=== PATIENT | female | born 2000 | race African-American/Black ===

== ENCOUNTER 2024-10-15 11:22 | Emergency (ER) | payer BC, SELFPAY ==
--- NOTE | 2024-10-15 11:24 | ED.URI ---
HPI - URI/Sore Throat General Chief Complaint: Upper Respiratory Infection Stated Complaint: throat pain Time Seen by Provider: 10/15/24 11:58 Source: patient, RN notes reviewed and old records reviewed Mode of arrival: ambulatory Limitations: no limitations History of Present Illness HPI Narrative: 24-year-old female presents to the [facility] with URI symptoms, sore throat, laryngitis, cough, postnasal drainage that started Friday, 4 days ago. Reports that she has had strep exposures Onset (ago): day(s) (4) Treatments prior to arrival: none Related Data Home Medications ?Medication ?Instructions ?Recorded ?Confirmed ?Last Taken ?Type No Home Medications 10/15/24 10/15/24 Unknown History Allergies Allergy/AdvReac Type Severity Reaction Status Date / Time No Known Allergies Allergy Verified 10/15/24 11:45 Review of Systems Review of Systems: All systems reviewed & are unremarkable except as noted in HPI and below Constitutional: Constitutional: Reports no additional constitutional complaints ENT: Reports as per HPI Cardiovascular: Cardiovascular: Reports no additional cardiovascular complaints, Denies chest pain and Denies dyspnea Respiratory: Respiratory: Reports no additional respiratory complaints, Denies chest congestion, Denies cough and Denies dyspnea Musculoskeletal: Musculoskeletal: Reports no additional musculoskeletal complaints Integumentary/Breasts: Skin/Breast: Reports system reviewed and no additional complaints, except as docu PMFSH Comments At the time of my signature, I reviewed and agree with the nursing past medical, surgical, social, and family history. There is no relevant family history pertinent to the patient complaint. Exam Const: General: cooperative, healthy appearing, comfortable, no acute distress, well developed, alert and well nourished Nutritional Appearance: well nourished Orientation/consciousness: patient oriented x3 Limitations: no limitations HENMT: Head: normal to inspection Ears: hearing grossly normal bilaterally, external ears normal, TM's normal bilaterally, EAC's normal, mastoids normal and no periauricular adenopathy Face/Nose/Sinus: Normal external nose present, Normal nares present and Normal nasal mucous membranes and turbinates present Mouth: Yes Normal oral and palatal mucosa present, Yes lip normal, Yes tongue normal and Yes moist mucous membranes Throat: posterior oropharynx normal, uvula midline, postnasal drainage, tonsils absent and no uvular edema Eyes: General: appearance normal, both eyes and all related structures Alignment and Position: alignment normal Neck: Neck: normal visual inspection, full ROM, no lymphadenopathy and no meningeal signs Chest: Chest palpation & inspection: normal inspection of the chest Resp: Effort & Inspection: normal respiratory effort and able to speak in complete sentences Auscultation: clear to auscultation bilaterally, no crackles, no rales, no rhonchi and no wheezes Cardio: Rate: regular rate Skin: General skin exam: normal color and no rashes or lesions noted Neuro: General: patient oriented x3, gait normal, moves all extremities and no meningeal signs Cognition (Neuro): normal cognition Speech: normal speech Gait exam (Neuro): Normal gait present Extrem: General: normal to inspection, full ROM, capillary refill normal and normal gait Psych: Appearance: grossly normal and well kempt Mental Status: mental status grossly normal Speech and movement: Normal speech and movement present and Clear speech present Affect: normal affect Attitude: cooperative Course Course Level of Care: Express Care Visit Vital Signs Vital signs: Vital Signs Temperature 97.6 F 10/15/24 11:38 Pulse Rate 73 10/15/24 11:38 Respiratory Rate 18 10/15/24 11:38 Blood Pressure 117/58 L 10/15/24 11:38 Pulse Oximetry 100 10/15/24 11:38 Oxygen Delivery Room Air 10/15/24 11:38 Temperature 97.6 F 10/15/24 11:38 Pulse Rate 73 10/15/24 11:38 Respiratory Rate 18 10/15/24 11:38 Blood Pressure 117/58 L 10/15/24 11:38 Pulse Oximetry 100 10/15/24 11:38 Oxygen Delivery Room Air 10/15/24 11:38 Reviewed MDM - URI/Sore Throat MDM Narrative Medical decision making narrative: Patient sitting in exam room. Patient presents with 4 day history of URI symptoms, sore throat, concern for strep. Strep test is negative, will culture. Patient appropriate for outpatient treatment with close follow-up Discharge instructions reviewed with patient, as well as provided in writing per nursing staff. The instructions also include specific and strict return/GO TO THE ER as well as f/u information. All questions have been answered, and the patient deny any further questions with discharge and discharge plan. Some parts of this dictation were generated by voice recognition software and may contain typographical and/or grammatical inaccuracies. Differential Diagnosis Differential diagnosis: Likely upper respiratory infection, otitis media, sinusitis, viral infection, bronchitis, influenza and pharyngitis Lab Data Labs: Lab Results 10/15/24 Range/Units 11:57 POC Grp A Strep Screen Negative (Negative) Reviewed Critical Care Time Critical Care Time Critical Care Time: No Discharge Plan Discharge Clinical Impression: Laryngitis Pharyngitis Qualifiers: Pharyngitis/tonsillitis etiology: unspecified etiology Qualified Code(s): J02.9 - Acute pharyngitis, unspecified Patient Disposition: Home Condition: Stable Instructions: Antibiotic Form, Pharyngitis (ED) Additional Instructions: Your rapid strep swab was negative today at [facility]. A throat culture will be sent to the laboratory for further testing. If the test is positive, you will receive a phone call within 48 hours and an appropriate antibiotic will be initiated at that time. Your symptoms are likely due to a viral illness, which is not treated with antibiotics. Typically viral infections last 7-10 days, can linger for couple of weeks. It is very important to treat your symptoms. Drink plenty of water, Gatorade, Pedialyte, ice pops or Jell-O. -Alternate Tylenol and Motrin per package directions for fever or pain. You can alternate every 4 hours -Antihistamine medication such as Zyrtec/Claritin/Parvin during the day can help improve symptoms. -doing daily nasal irrigations can help relieve pressure your sinuses. Things like a Neti pot -Use Flonase twice a day for 5 days then daily to help reduce the inflammation and dry up your sinuses. -You can also use Mucinex. Be sure to drink plenty of water with this medication at least 8 ounces with every dose and it is important to drink 8 to 10 glasses of water per day. Water is a natural decongestant -Eat and drink things that are easy to swallow, like tea or soup, or popsicles. -Oral rinses such as: Salt water gargles and/or may use topical anesthetic (eg. Chloraseptic spray) or lozenges to relieve dryness or throat pain). -Frequent hand washing or hand amphibian crewmember is one of the best ways to prevent spread of infection. -Using a vaporizer or humidifier at night will also help thin secretions and help with coughing up phlegm. -Follow up with primary care provider in 7-10 days if condition is not improving - For new or worsening symptoms go directly to the nearest ER Patient Language: Yoruba Prescriptions: No Action No Home Medications Follow-up/Referrals: Breanne,MACK Churchill [Primary Care Provider] - 2 Weeks ([facility] follow-up) Stand Alone Forms: Work/School Release IP Time of Disposition: 12:06
--- OUTSIDE RECORDS SUMMARY | 2024-10-15 11:34 | XMS_ITS | Data Portability ---
Author Organization REAL [facility] Smyth Address [address] [facility] [place] [address] Care Team Providers Care Operations Research Scientist Name Role Phone DOROTEO QUIROS Primary Care Provider Unavailab le Assessment No assessment recorded. Plan of Treatment Reminders Order Date Submit Date Provider Last Modified By Organization Details Last Modified Time Details Appointments ANY 15 2024 11:30A M PALOMA Guillaume Not available Not available Not available Lab lipid panel, serum 2024 025 Not available 09/03/2024 10:53:07 CBC w/ auto diff 2024 025 Not available 09/03/2024 10:53:07 CMP, serum or plasma 2024 025 Not available 09/03/2024 10:53:07 insulin, serum 2024 025 Not available 09/03/2024 10:53:07 TSH + free T4, serum 2024 025 Not available 09/03/2024 10:53:07 vitamin D, 25-hydrox y, total, serum 2024 025 Not available 09/03/2024 10:53:07 hemoglobi n A1c, QN, blood 2024 025 Not available 09/03/2024 10:53:07 Referral None recorded. Procedures None recorded. Surgeries None recorded. Imaging None recorded. Medication Orders losartan 50 mg tablet 2024 025 ANU [id number], [address], [place], [phone], 08/13/2024 11:44:14 Patient TargetsNo targets recorded. Patient Instructions Encounter Date Encounter Id Patient Instructions Last Modified By Organization Details Last Modified Time 08/13/2024 [id number] A healthy lifestyle: care instructions [email or web address] Not available 08/23/2024 00:50:14 Reason for Referral None Reported. Results Created Date Observation Date Name Description Value Unit Range Abnormal Flag Note LastModifiedBy Organization Detail LastModifiedTime Result Notes None recorded. Problems Name Problem SNOMED Code Status Onset Date Resolution Date Notes Provider Name and Address Organization Details Recorded Time Benign essential hypertensio n 5402734 Active 2024 PALOMA Guillaume Attn: Accountin g,[address] [facility] [address], [place], [address], [facility] - [facility] 5 00:49:19 Body mass index 40+ - severely obese 084470982 Active 2024 PALOMA Guillaume Attn: Accountin g,[address] [facility], [place], [address], [place] - [facility] 00:49:29 Positive screening for depression on PHQ-9 (Patient Health Questionnai re 9) [id number] 00 Active 2024 PALOMA Guillaume Attn: Accountin g,[address] [facility], [place], [address], [place] - [facility] 5 00:49:56 Vitamin D deficiency 22914456 Active 2024 PALOMA Guillaume Attn: Accountin g,[address] [facility], [place], [address], [place] [facility] 5 00:49:58 Obesity 042997406 Active 2024 PALOMA Guillaume Attn: Accountin g,[address] [facility], [place], [address], [place] [facility] 5 00:50:04 Problem Notes None recorded. Procedures Surgical History Date Name Laterality Status Provider Name and Address Organization Details Recorded Time Tonsillectomy completed Edie Chan MA [place] - [facility] 08/13/2024 14:07:07 Imaging Results None recorded. Procedure Notes None recorded. Medical Equipment None Reported. Allergies No known drug allergies Medications Name Sig Start Date Stop Date Status Note LastModified by Organization Details LastModified Time losartan 50 mg tablet TAKE 1 TABLET BY MOUTH EVERY DAY IN THE MORNING 2024 active Not Available Not Available Not Avai lable amoxicillin 875 mg tablet TAKE 1 TABLET BY MOUTH EVERY 12 HOURS FOR 10 DAYS 08/13 completed Not Available Not Available Not Available ergocalcife rol (vitamin D2) 1,250 mcg (50,000 unit) capsule TAKE 1 CAPSULE BY MOUTH EVERY WEEK active Not Available Not Available No t Available methylpredn isolone 4 mg tablets in a dose pack FOLLOW PACKAGE DIRECTION S 08/13 completed Not Available Not Available Not Available cefdinir 300 mg capsule TAKE 1 CAPSULE BY MOUTH EVERY 12 HOURS FOR 10 DAYS 08/13 completed Not Available Not Available Not Available Nexplanon 68 mg subdermal implant active Not Available Not Available Not Available Wegovy 2.4 mg/0.75 mL subcutaneou s pen injector ADMINISTE R 2.4 MG UNDER THE SKIN EVERY WEEK 08/13 completed Not Available Not Available Not Available Wegovy 1.7 mg/0.75 mL subcutaneou s pen injector INJECT 1.7 MG UNDER THE SKIN EVERY WEEK DIRECTED 08/13 completed Not Available Not Available Not Available Wegovy 1 mg/0.5 mL subcutaneou s pen injector ADMINISTE R 1 MG UNDER THE SKIN EVERY WEEK 08/13 completed Not Available Not Available Not Available Wegovy 0.5 mg/0.5 mL subcutaneou s pen injector 08/13 completed Not Available Not Available Not Available Vitals Date Recorded Respiratory rate Systolic blood pressure Diastolic blood pressure Systolic blood pressure Diastolic blood pressure Provider Name and Address Organization Details Last Updated DateTime 18 /min 150 mm[Hg] 90 mm[Hg] 150 mm[Hg] 90 mm[Hg] PALOMA Guillaume Attn: Karsten g [facility], [place], [address], [place] - [facility] 11:44:00 Date Recorded Body weight Body mass index (BMI) Body height Oxygen saturation Oxygen saturation in Arterial blood by Pulse oximetry Heart rate Systolic blood pressure Diastolic blood pressure Provider Name and Address Organization Details Last Updated DateTime 351214. 41 g 58.4 kg/m2 162.56 cm 99 % 99 % 71 /min 118 mm[Hg] 82 mm[Hg] Edie Chan MA [facility] 11:25:47 Social History Question Answer Notes LastModified by Organizat ion Details LastModified Time Tobacco Smoking Status Never Smoker Edie Chan MA null, [facility] 08/13/2024 14:09:34 Do You Have An Advance Directive? No Information n ot available 08/13/2024 Are You Blind Or Do You Have Difficulty Seeing? No Information n ot available 08/13/2024 What Is Your Level Of Caffeine Consumption? Occasional Information not available 08/13/2024 In The 14 Days Before Symptom Onset, Have You Had Close Contact With A Laboratory-confirm ed COVID-19 While That Case Was Ill? No Information n ot available 10/23/2023 In The 14 Days Before Symptom Onset, Have You Had Close Contact With A Person Who Is Under Investigation For COVID-19 While That Person Was Ill? No Information not available 10/23/2023 Have You Been To An Area Known To Be High Risk For COVID-19? No Information not available 10/23/2023 Are You Deaf Or Do You Have Serious Difficulty Hearing? No Information not available 08/13/2024 What Type Of Diet Are You Following? REGULAR Information n ot available 08/13/2024 Are There Any Guns Present In Your Home? No Information not available 08/13/2024 What Was The Date Of Your Most Recent Tobacco Screening? 08/13/2024 Information not available 08/13/2024 Do You Use Your Seat Belt Or Car Seat Routinely? Yes Information not available 10/23/2023 Do You Have Smoke And Carbon Monoxide Detectors In Your Home? Yes Information not available 10/23/2023 Do You Use Sunscreen Routinely? No Information not available 08/13/2024 Has Tobacco Cessation Counseling Been Provided? Yes Information not available 10/23/2023 On What Date Was Tobacco Cessation Counseling Provided? 08/13/2024 Information not available 08/13/2024 How Many Years Have You Used E-cigarettes Or Vape? 5 Information not available 08/13/2024 Sex: Female Functional Status Question Answer Note LastModified by [employer] Details LastModified Time Do you use any illicit or recreational drugs? No Information not available 08/13/2024 Do you or have you ever used any other forms of tobacco or nicotine? Yes Information not available 08/13/2024 What is your level of alcohol consumption? Occasional Information not available 08/13/2024 Do you or have you ever used smokeless tobacco? Never used smokeless tobacco Information not available 08/13/2024 Are you currently employed? Yes Information not available 08/13/2024 Are you able to care for yourself? Yes Information not available 10/23/2023 Do you or have you ever used e-cigarettes or vape? Current user of electronic cigarettes Information not available 08/13/2024 What is your exercise level? None Information not available 08/13/2024 Mental Status None recorded. Family History Relationship Description Onset Age of this Age Resolved Age Notes LastModified by Organization Details LastModified Time Maternal Grandmother Asthma [email or web address] Not available 07/18 14:07:27 Maternal Grandmother Depressive disorder tcarterma Not available 2024 14:08:09 Maternal Grandmother Diabetes mellitus tcarterma Not available 2024 14:08:02 Brother Asthma tcarterma Not available 08/13/2024 14:07:27 Brother Depressive disorder tcarterma Not available 2024 14:07:45 Daughter Attention deficit hyperactivit y disorder tcarterma Not available 08/13 14:07:32 Medical History Condition Response Coronary Artery Disease N Other N High Blood Pressure N Atrial Fibrillation N Kidney or Bladder Problems N Thyroid Problems N GI Problems N Depression N COPD N Blood Clots N Have you had a mammogram in the last yea r? N Skin Problems N Anemia N Heart Attack (RI) N Anxiety Disorder N Diabetes N Muscle, Joint, or Bone Problems N Seizures/Epilepsy N Have you had a colonoscopy in the last 1 0 years? N Acid Reflux (GERD) N Cancer N Stroke N Asthma N Allergies N Have you had a PSA blood test in the las t year? N High Cholesterol N Hepatitis N Liver Disease N Headaches N Heart Failure N Osteoporosis N Gynecological History Statement/Question Response Menses Monthly Y Duration of Flow (days) 7 Flow Heavy Date of LMP 08/05/2024 LMP Approximate Obstetrics History GPAL:G 0 P 0 0 0 0 Immunizations Vaccine Type Date Status Note Provider Nam e and Address Organization Details Recorded Time Hib, unspecified formulation 3 completed Edie [place], [place] [facility] 08/13/2024 11:19:37 Hib, unspecified formulation 3 completed Ed[place] [facility] 08/13/2024 11:19:37 Hib, unspecified formulation 2 completed Ed[place] [facility] 08/13/2024 11:19:37 IPV 3 completed Ed[place] [facility] 08/13/2024 11:19:37 IPV 6 completed Ed[place] [facility] 08/13/2024 11:19:37 IPV 3 completed Ed[place] [facility] 08/13/2024 11:19:37 IPV 2 completed Ed[place] [facility] 08/13/2024 11:19:37 MMR 6 completed Ed[place] [facility] 08/13/2024 11:19:37 MMR 3 modesto Chan [place] [facility] 08/13/2024 11:19:37 COVID-19, mRNA, LNP-S, PF, 30 mcg/0.3 mL dose 1 completed Ed[place] [facility] 08/13/2024 11:19:37 COVID-19, mRNA, LNP-S, PF, 30 mcg/0.3 mL dose 1 completed [place] [facility] 08/13/2024 11:19:37 COVID-19, mRNA, LNP-S, PF, 30 mcg/0.3 mL dose 1 completed [place] [facility] 08/13/2024 11:19:37 pneumococcal conjugate PCV 7 3 completed Ed[place] [facility] 08/13/2024 11:19:37 pneumococcal conjugate PCV 7 3 completed Ed[place] [facility] 08/13/2024 11:19:37 pneumococcal conjugate PCV 7 3 completed Ed[place] [facility] 08/13/2024 11:19:37 pneumococcal conjugate PCV 7 2 completed [place] [facility] 08/13/2024 11:19:37 influenza, unspecified formulation 3 completed [place] [facility] 08/13/2024 11:19:37 influenza, unspecified formulation 3 completed [place] [facility] 08/13/2024 11:19:37 influenza, unspecified formulation 5 completed [place] [facility] 08/13/2024 11:19:37 Tdap 3 completed [place] [facility] 08/13/2024 11:19:37 varicella 7 completed [place] [facility] 08/13/2024 11:19:37 varicella 3 completed [place] [facility] 08/13/2024 11:19:37 Influenza, split virus, trivalent, PF 3 completed [place] [facility] 08/13/2024 11:19:37 Influenza, split virus, trivalent, PF 2 completed [place] [facility] 08/13/2024 11:19:37 HPV, quadrivalent 4 completed [place] [facility] 08/13/2024 11:19:37 HPV, quadrivalent 3 completed [place] [facility] 08/13/2024 11:19:37 Hep B, adolescent or pediatric 3 completed [place] [facility] 08/13/2024 11:19:37 Hep B, adolescent or pediatric 2 completed [place] [facility] 08/13/2024 11:19:37 Hep B, adolescent or pediatric 2 completed [place] [facility] 08/13/2024 11:19:37 Hep A, pediatric, unspecified formulation 7 completed [place] [facility] 08/13/2024 11:19:37 Hep A, pediatric, unspecified formulation 6 completed [place] [facility] 08/13/2024 11:19:37 Hib (PRP-T) 3 completed [place] [facility] 08/13/2024 11:19:37 Meningococcal MCV4O 3 completed [place] [facility] 08/13/2024 11:19:37 meningococcal MCV4P 8 completed [place] [facility] 08/13/2024 11:19:37 DTaP 3 completed [place] [facility] 08/13/2024 11:19:37 DTaP 6 completed Ramiroselma Chan [place] [facility] 08/13/2024 11:19:37 DTaP 3 completed Ramirosilaslaura Dustin [place] [facility] 08/13/2024 11:19:37 DTaP 2 completed Ed[place] [facility] 08/13/2024 11:19:37 DTaP, 5 pertussis antigens 3 completed Edie [place] [facility] 08/13/2024 11:19:37 Influenza, split virus, quadrivalent, PF 0 completed Ramirosilaslaura Dustin [place] [facility] 08/13/2024 11:19:37 Influenza, split virus, quadrivalent, PF 6 completed Edie [place] [facility] 08/13/2024 11:19:37 Influenza, split virus, quadrivalent, PF 7 completed Jesuslaura Dustin [place] [facility] 08/13/2024 11:19:37 Influenza, split virus, quadrivalent, PF 0 completed Ramirosilaslaura Dustin [place] [facility] 08/13/2024 11:19:37 Past Encounters Encounter ID Performer Location Encounter Start Date Encounter Closed Date Diagnosis/Indication Diagnosis SNOMED-CT Code Diagnosis ICD10 Code Diagnosis Note [id number] Joselito Wilkins MD [facility] [place] [address] [place] [address] 08/13/2024 11:11:30 08/13/2024 14:45:55 Adult health examination 831929956 Z00.00 Annual wellness exam completed with fasting labs ordered Benign ess ential hypertension 6040028 I10 Blood pressure is 150/90 on exam today. In order to control blood pressure to goal range the patient will start low dose losartan 50mg daily Body mass index 40+ - severely obese 547656223 Z68.43 BMI 58.4. Check fasting insulin and thyroid labs Cholesterol screening 27 6980967 Z13.220 Fasting cholestero l panel ordered Diabetes nohelia perez screening 610603957 Z13.1 A1c ordered for diabetes risk assessment Vitamin D deficiency 347 18979 E55.9 History of vitamin-D deficiency with updated lab ordered Positive s creening for depression on PHQ-9 (Patient Health Questionnaire 9) 3262471833 11063 Z13.31 Patient scored an 11 on screening today. She has no complaints or concerns overall with her mental health. Obesity 292558673 E66.9 discussed healthy diet, exercise, controllin g carbohydra pantera and added sugars in the diet Health Concerns Section Related Observation LastModified by Organization Detai ls LastModified Time None Recorded Concern Status LastModified by Organization Details LastModified Time None Recorded Advance Directives Directive N: Payers Encounter Date Sequence Insurance Name Policy Number Policy Moran Covered Member ID Moran Member ID Guarantor Name 08/13/2024 1 [place] [id number] Yola Varma [id number] Keisha Varma Notes Date Note Type Note Provider Name and Address Organization Details Recorded Time 08/13/2024 text/html Patient is here to reestablish with a provider at new office location. She takes vitamin-D supplement and has a history of a Nexplanon implant. PALOMA Guillaume Attn: Accounting[address] [place], [address], [facility] - [facility] 08/23/2024 00:50:57 OBGyn Episode No OBEpisode recorded.
--- OUTSIDE RECORDS SUMMARY | 2024-10-15 11:34 | XMS_ITS | Data Portability ---
Author Organization [place] [facility], Main Office Address [address] [place] [address] Care Team Providers Care Mental Health Professional Name Role Phone DOROTEO QUIROS Primary Care Provider Assessment No assessment recorded. Plan of Treatment Reminders Order Date Submit Date Provider Last Modified By Organization Details Last Modified Time Details Appointments Surgery 2024 09:30A Drake Salazar MD Not available Not available Not available Post-Op 15 2024 01:15P Drake Salazar MD Not available Not available Not available Lab None recorded. Referral None recorded. Procedures None recorded. Surgeries endoscopy , nasal/sin us, w/ maxillary antrostom y & tissue removal (SURG) 2024 025 Not available 09/16/2024 18:04:28 endoscopy , nasal/sin us, with frontal sinus explorati on (SURG) 2024 025 Not available 09/16/2024 18:04:28 Imaging None recorded. Medication Orders cefdinir 300 mg capsule 2024 025 [email or web address] [id number], [address], [place], [phone], 09/02/2024 14:28:45 Medrol (Josef) 4 mg tablets in a dose pack 2024 025 [email or web address] [facility] #[id number], [address], [place], [phone], 09/02/2024 14:28:47 Patient TargetsNo targets recorded. Patient Instructions Encounter Date Encounter Id Patient Instructions Last Modified By Organization Details Last Modified Time 07/12/2024 [id number] prescribed cefdinir and Medrol Dosepak for antimicrobial coverage and inflammation. She will have a sinus CT completed. Discussed nasal turbinate hypertrophy and advised to use her Flonase daily instead of intermittently. We will await the final results of her sinus CT before having her discuss surgical options if needed with Dr. Salazar. [email or web address] Not available 07/12/2024 17:02:17 Reason for Referral None Reported. Results Created Date Observation Date Name Description Value Unit Range Abnormal Flag Note LastModifiedBy Organization Detail LastModifiedTime 12/28/1912/27/2020 US, guru cho r No observ ation record ed. [id number] Not Available 07/17/2022 22:45:38 05/29/19 22 05/28/2021 XR, cervi nathalia spine , 2 or 3 view No observ ation record ed. [id number] [facility] [address], [place], [address], 07/17/2022 22:45:38 01/07/20 23 06/26/2022 US, abdom en No observ ation record ed. [email or web address] Not Available 2022 18:14:35 06/12/19 24 06/26/2022 US, abdom en No observ ation record ed. [email or web address] Not Available 06/12 14:02:33 08/11/19 25 08/09/2024 CT, sinus es, w/o contr ast No observ ation record ed. [email or web address] [facility] ([facility] Sched[facility]) [address] [place], [address], 08/25/2024 11:55:01 08/24/19 25 08/23/2024 CT, sinus es, w/o contr ast No observ ation record ed. BARCODE [facility]) [address] [place], [address], 08/23/2024 13:31:39 Result Notes None recorded. Problems Name Problem SNOMED Code Status Onset Date Resolution Date Notes Provider Name and Address Organization Details Recorded Time Mixed anxiety and depressive disorder 073585169 Active 2022 Not Available [facility] 3 22:43:49 Abdominal mass 784017897 Active 2022 Not Available [facility] 3 22:43:49 Vitamin D deficiency 54546888 Active 2022 PALOMA Guillaume [address], [place], [address] , [employer] [facility] [employer] [facility] 3 14:09:46 Intentiona l weight loss 234484978 Active 2022 PALOMA Guillaume [address], [address], [place], [address] , [employer] [facility] [employer] [facility] 3 16:22:14 Chronic sinusitis 59589231 Active 2024 Vida Doyle RN [facility], [employer] [facility] [employer] [facility] 5 16:42:12 Hypertroph y of nasal turbinates 70601746 Active 2024 ISIDRA Navarro [address], [address], [place], [address] , [employer] [facility] [employer] [facility] 5 16:58:47 Chronic frontal sinusitis 04318946 Active 2024 Khadar Salazar MD [address], [place], [address] , [employer] [facility] [employer] [facility] 5 14:40:12 Chronic bilateral maxillary sinusitis 9478987065840 9105 Active 2024 Khadar Salazar MD [address], [address], [place], [address] , [employer] [facility] [employer] [facility] 5 14:40:33 Problem Notes None recorded. Procedures Surgical History Date Name Laterality Status Provider Name and Address Organization Details Recorded Time other completed Not Available [facility] 05/2022 22:42:42 Tonsillectomy completed Not Available [facility] 07/17/2022 22:42:42 Imaging Results None recorded. Procedure Notes None recorded. Medical Equipment None Reported. Allergies No known drug allergies Medications Name Sig Start Date Stop Date Status Note LastModified by Organization Details LastModified Time losartan 50 mg tablet TAKE 1 TABLET BY MOUTH EVERY DAY IN THE MORNING active Not Available Not Available No t Available cyclobenz aprine 10 mg tablet TAKE 1 TABLET BY MOUTH THREE TIMES DAILY NEEDED FOR MUSCLE SPASM 07/12 completed Not Available Not Available Not Available Tubersol 5 tub. unit/0.1 mL intraderm al injection solution Inject 1 unit by intrader mal route. 09/01 completed Internal note: Test was negatvie External note: Patient handled injectio n well. Is coming back on 08/10/19 21 to have test read Not Available Not Available Not Available amoxicill in 875 mg tablet TAKE 1 TABLET BY MOUTH EVERY 12 HOURS FOR 10 DAYS 07/12 completed Not Available Not Available Not Available sertralin e 25 mg tablet TAKE 1 TABLET BY MOUTH EVERY DAY IN THE EVENING 06/10 completed Not Available Not Available Not Available estradiol 2 mg tablet 07/12 completed Not Available Not Available Not Available ergocalci ferol (vitamin D2) 1,250 mcg (50,000 unit) capsule TAKE 1 CAPSULE BY MOUTH EVERY WEEK 07/12 completed Not Available Not Available Not Available methylpre dnisolone 4 mg tablets in a dose pack FOLLOW PACKAGE DIRECTIO NS 09/02 completed Not Available Not Available Not Available cefdinir 300 mg capsule TAKE 1 CAPSULE BY MOUTH EVERY 12 HOURS FOR 10 DAYS 09/02 completed Not Available Not Available Not Available metformin ER 750 mg tablet,ex tended release 24 hr TAKE 1 TABLET BY MOUTH EVERY DAY AT DINNER 06/10 completed Not Available Not Available Not Available Lo Loestrin Fe 1 mg-10 mcg (24)/10 mcg (2) tablet TK 1 T PO QD 08/07 completed Not Available Not Available Not Available Nexplanon 68 mg subdermal implant active Not Available Not Available Not Available Wegovy 2.4 mg/0.75 mL subcutane ous pen injector ADMINIST ER 2.4 MG UNDER THE SKIN EVERY WEEK NEEDED 06/11 completed Not Available Not Available Not Available Wegovy 1.7 mg/0.75 mL subcutane ous pen injector INJECT 1.7 MG UNDER THE SKIN EVERY WEEK DIRECTED 06/11 completed Not Available Not Available Not Available Wegovy 1 mg/0.5 mL subcutane ous pen injector ADMINIST ER 1 MG UNDER THE SKIN EVERY WEEK 06/11 completed Not Available Not Available Not Available Wegovy 0.25 mg/0.5 mL subcutane ous pen injector ADMINIST ER 0.25MG UNDER THE SKIN EVERY WEEK DIRECTED 07/12 completed Not Available Not Available Not Available Wegovy 0.5 mg/0.5 mL subcutane ous pen injector Inject 0.5 mg every week by subcutan eous route as directed . 08/15 completed Not Available Not Available Not Available Vitals Date Recorded Body mass index (BMI) Body height Oxygen saturation Oxygen saturation in Arterial blood by Pulse oximetry Heart rate Respiratory rate Body temperature Body weight Systolic blood pressure Diastolic blood pressure Provider Name and Address Organization Details Last Updated DateTime 3 62.8 kg/m2 162.56 cm 99 % 99 % 100 /min 16 /min 98.2 [degF] 765747. 81 g 128 mm[Hg] 80 mm[Hg] Not Available [facility] 3 22:43:37 Date Recorded Body weight Body mass index (BMI) Body height Body temperature Provider Name and Address Organization Details Last Updated DateTime 07/12/2024 387462.59 g 58.7 kg/m2 162.56 cm 97.9 [degF] Vida Doyle RN [facility] [employer] [facility] 07/12/2024 16:21:32 Date Recorded Body height Body mass index (BMI) Body weight Body temperature Provider Name and Address Organization Details Last Updated DateTime 09/02/2024 162.56 cm 59 kg/m2 816894.78 g 97.8 [degF] Vida Doyle RN [facility] [employer] [facility] 09/02/2024 14:30:24 Date Recorded Body mass index (BMI) Body height Oxygen saturation Oxygen saturation in Arterial blood by Pulse oximetry Heart rate Body temperature Body weight Systolic blood pressure Diastolic blood pressure Provider Name and Address Organization Details Last Updated DateTime 1 57.2 kg/m2 162.56 cm 98 % 98 % 88 /min 98.6 [degF] 778889. 7 g 120 mm[Hg] 80 mm[Hg] Not Available [facility] 22:43:37 Date Recorded Body mass index (BMI) Body weight Provider Name and Address Organization Details Last Updated DateTime 01/06/2023 51.2 kg/m2 301980.53 g PALOMA Guillaume [address] [facility], [facility] [address], [place], [address], [employer] 01/06/2023 13:03:09 Date Recorded Body height Body temperature Heart rate Oxygen saturation Oxygen saturation in Arterial blood by Pulse oximetry Systolic blood pressure Diastolic blood pressure Provider Name and Address Organization Details Last Updated DateTime 3 162.56 cm 97.9 [degF] 78 /min 97 % 97 % 122 mm[Hg] 78 mm[Hg] Vee Camejo RN [employer] [facility] 12:45:55 Social History Question Answer Notes LastModified by Organizat ion Details LastModified Time Tobacco Smoking Status Never Smoker VAPES Vida Doyle RN [facility], [employer] 07/12/2024 16:20:39 What Is Your Level Of Caffeine Consumption? Occasional [id number] Information not available 07/17/2022 How Much Tobacco Do You Chew? None [id number] Information not available 07/17/2022 In The 14 Days Before Symptom Onset, Have You Had Close Contact With A Laboratory-confirm ed COVID-19 While That Case Was Ill? No [id number].[id number] Information not available 07/17/2022 In The 14 Days Before Symptom Onset, Have You Had Close Contact With A Person Who Is Under Investigation For COVID-19 While That Person Was Ill? No [id number].[id number] Information not available 07/17/2022 What Type Of Diet Are You Following? REGULAR MIGRATION.[id number] 1844 Information not available 07/17/2022 Which Illicit Or Recreational Drugs Have You Used? None MIGRATION.[id number] 6257 Information not available 07/17/2022 Have There Been Any Changes To Your Family Or Social Situation? No MIGRATION.[id number] 3975 Information not available 07/17/2022 Do You Use Insect Repellent Routinely? No MIGRATION.662018 5694 Information not available 07/17/2022 What Is Your Relationship Status? Single MIGRATION.255226 1005 Information not available 07/17/2022 Do You Use Your Seat Belt Or Car Seat Routinely? Yes [email or web address] Information not available 01/03/2023 Do You Have Smoke And Carbon Monoxide Detectors In Your Home? Yes MIGRATION.773320 3463 Information not available 07/17/2022 How Much Tobacco Do You Smoke? No MIGRATION.619761 0492 Information not available 07/17/2022 Do You Use Sunscreen Routinely? No MIGRATION.112322 4508 Information not available 07/17/2022 Have You Recently Traveled Abroad? No MIGRATION.616675 9660 Information not available 07/17/2022 Do You Have Any Dietary Restrictions? No MIGRATION.258111 0025 Information not available 07/17/2022 Sex: Unknown Functional Status Question Answer Note LastModified by Organizat ion Details LastModified Time Do you use any illicit or recreational drugs? No MIGRATION.151860 [id number] Information not available 07/17/2022 Do you or have you ever used any other forms of tobacco or nicotine? No MIGRATION.357571 5235 Information not available 07/17/2022 What is your level of alcohol consumption? Occasional MIGRATION.637715 3658 Information not available 07/17/2022 Do you or have you ever used smokeless tobacco? Never used smokeless tobacco MIGRATION.977430 3169 Information not available 07/17/2022 Are you currently employed? 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 Never used electronic cigarettes MIGRATION.234613 6313 Information not available 07/17/2022 What is your exercise level? Moderate MIGRATION.757090 0450 Information not available 07/17/2022 Mental Status None recorded. Family History Relationship Description Onset Age of this Age Resolved Age Notes LastModified by Organization Details LastModified Time Unspecified Relation Heart failure [id number] Not available 07/17/2022 22:42:44 Unspecified Relation Family history of malignant neoplasm MIGRATION.468 [id number] Not available 07/17/2022 22:42:44 Unspecified Relation Hypertensive disorder MIGRATION.050 [id number] Not available 07/17/2022 22:42:44 Unspecified Relation Diabetes mellitus MIGRATION.079 [id number] Not available 07/17/2022 22:42:44 Unspecified Relation Hyperlipidem ia MIGRATION.481 [id number] Not available 07/17/2022 22:42:44 Maternal Grandmother Kidney disease MIGRATION.615 [id number] Not available 07/17/2022 22:42:44 Notes:BROTHER: SHERIE Zeng HEARING LOSS Medical History Condition Response NERVE DISEASE N BLINDNESS N RHEUMATIC FEVER N KIDNEY STONES N BLADDER PROBLEMS N MRSA N OTHER # 1 N POLIO N LUNG DISEASE/DISORDER N RADIATION / CHEMOTHERAPY N COPD N Other # 2 N BLOOD DISEASES N SURGERY N EAR OR HEARING PROBLEMS N MUMPS N BOWEL PROBLEMS N DEPRESSION (INCLUDING POST ) Y STROKE/TIA N ULCERS N BENIGN PROSTATIC HYPERPLASIA N MEASLES N MYOCARDIAL INFARCTION N OBESITY N GERD/NAUSEA N ANEURYSM N URINARY/BLADDER/KIDNEY PROBLEMS N CORONARY ARTERY DISEASE (CAD) N ADDICTION CONCERNS N ENDOMETRIOSIS N Impotence N USE OF BLOOD THINNERS N SKIN PROBLEMS N GASTROINTESTINAL DISORDER N PERIPHERAL VASCULAR DISEASE N MUSCLE,JOINT OR BONE PROBLEMS N GASTROINTESTINAL BLEEDING N BLOOD CLOTS N ASTHMA N CATARACTS N ERECTILE DYSFUNCTION N VARICOSITIES N GI PROBLEMS N Low Testosterone N INFERTILITY N AIDS/HIV N CHEMOTHERAPY / RADIATION N LIVER DISEASE N MALE HYPOGONADISM N HYPERTENSION N Deficiency N ANXIETY DISORDER Y BLOOD TRANSFUSION N ANEMIA/BLOOD DISORDER N CHRONIC EAR INFECTIONS N BRONCHITIS N TUBERCULOSIS N GLAUCOMA N FOOT PROBLEM N DIVERTICULITIS N SLEEP APNEA N CHICKENPOX N INFECTIOUS DISEASE N HEART ARRHYTHMIA N PROSTATE N INSOMNIA N HIGH CHOLESTEROL / HYPERLIPIDEMIA N HYPERTHYROIDISM N EYE PROBLEMS N NEUROLOGICAL PROBLEMS N EDEMA N CHRONIC PAIN SYNDROME N HYPOTHYROIDISM N CAROTID BLOCKAGE N CONSTIPATION N BACK / NECK PROBLEMS N HAVE YOU BEEN HOSPITALIZED OR SEEN IN [facility] IN THE PAST YEAR ? N ATHEROSCLEROSIS N BREAST PROBLEMS N DIALYSIS N ECZEMA N OSTEOPOROSIS N ARTHRITIS N NO SIGNIFICANT PAST MEDICAL HISTORY N APPENDICITIS N DIABETES, TYPE N BAD TEETH N ENT N HEARTBURN / REFLUX N AUTISM SPECTRUM DISORDER (ASD) N HEPATITIS / LIVER DISEASE N GOUT N SLEEP DISORDER N ALZHEIMER'S DISEASE N Brain Problems N HERPES N DEMENTIA N HEADACHES/MIGRAINES N SEIZURES/EPILEPSY N VASCULAR DISEASE N PACEMAKER N Blood Disorder N DIZZINESS N HEART DISEASE/HEART PROBLEMS N KIDNEY DISEASE N MULTIPLE SCLEROSIS N CARDIAC ARRHYTHMIA N CANCER: SPECIFY N ATRIAL FIBRILLATION N Gall Stones N PULMONARY EMBOLISM N AUTOIMMUNE DISEASE N Gynecological HistoryNo gynecological history recorded. Obstetrics History GPAL:G 0 P 0 0 0 0 Immunizations Vaccine Type Date Status Note Provider Nam e and Address Organization Details Recorded Time TST-PPD intradermal completed Not Available [facility] 07/17/2022 22:45:27 Past Encounters Encounter ID Performer Location Encounter Start Date Encounter Closed Date Diagnosis/Indication Diagnosis SNOMED-CT Code Diagnosis ICD10 Code Diagnosis Note [id number] PALOMA Guillaume [facility] [place] [address] [place] [address] 08/07/2020 00:00:00 08/08/2020 21:47:09 [id number] PALOMA Guillaume [facility] [place] [address] [place] [address] 12/06/2020 00:00:00 12/06/2020 09:11:18 [id number] PALOMA Guillaume [facility] [place] [address] [place] [address] 06/10/2022 00:00:00 06/18/2022 17:46:52 [id number] PALOMA Guillaume [facility] [place] [address] [place] [address] 01/06/2023 12:41:13 01/06/2023 13:01:02 Mixed anxiety and depressive disorder 804189793 F41.8 stable off medication , no c/o. Vitamin D deficiency 347 34280 E55.9 continue high dose weekly Rx vit D Body mass index 40+ - severely obese 858917888 Z68.43 68 pounds lost since end may starting wegovy. Now on 2.4mg weekly dosing. Still feeling good results. Intentiona l weight loss 405084036 R63.8 as above. Long-term drug therapy 593910896 Z79.014 [id number] Khadar Salazar MD [facility] [place] [address] [place] [address] 07/12/2024 15:53:19 07/12/2024 17:02:47 Hypertrophy of nasal turbinates 41334889 J34.3 Advised to use flonase daily instead of intermitte ntly for symptom management Chronic sinusitis 820162 00 J32.9 [id number] Khadar Salazar MD [facility] [place] [address] [place] [address] 09/02/2024 14:25:50 09/03/2024 09:14:11 Chronic frontal sinusitis 32705538 J32.1 Chronic bi lateral maxillary sinusitis 9074448095 9085480 J32.0 Health Concerns Section Related Observation LastModified by Organization Detai ls LastModified Time None Recorded Concern Status LastModified by Organization Details LastModified Time None Recorded Advance Directives Directive None Recorded Payers Encounter Date Sequence Insurance Name Policy Number Policy Moran Covered Member ID Moran Member ID Guarantor Name 01/06/2023 1 [employer] (POS II) [id number] Yola Velasquezs [id number] Keisha Scaggs 07/12/2024 1 [place] Yola Scaggs [id number] Keisha Scaggs 09/02/2024 1 [place] Yola Scaggs [id number] Keisha Scaggs Notes Date Note Type Note Provider Name and Address Organization Details Recorded Time 12/06/2020 text/html Abdominal PainReported bypatient.Location: [facility] Quality:pain;bloati ng;cramping;dull Severity:moderate Duration:intermitte nt Onset/Timing:wax/wa ne Context:IBS; food Aggravating Factors:eating Alleviating Factors:nothing gives relief Associated Symptoms:no fever; no chills; no blood in the urine; no heartburn; no shortness of breath; no nausea; no vomiting; no constipation; normal stool; no blood in stool; normal appetite;diarrhea Other:denies possible Pain Radiation:no radiation Previous Tests, Treatment and/or Diagnostic Procedures:noneAnxi ety/DepressionRepor yee bypatient.Severity: denies suicidal ideations; able to maintain relationships; does not interfere with activities of daily living Context:no major life stressors Associated Symptoms:denies homicidal ideations; no significant weight gain; no significant weight loss; no visual/auditory hallucinations; no delusions; no shortness of breath; mood good; no anxiety; no crying spells; no panic; no isolation; sleeping well; appetite good; energy good; no apathy; maintaining functionality Not Available [facility] 12/06/2020 09:11:18 06/10/2022 text/html Anxiety/Depressi onR eported bypatient.Quality:s ymptoms worse in the evening Severity:denies suicidal ideations; able to maintain relationships;inter ference with household activities Duration:symptoms lasting over 2 weeks Onset/Timing:still present Context:trouble at work; school Modifying Factors:stopped med Associated Symptoms:denies homicidal ideations; no significant weight gain; no significant weight loss; no visual/auditory hallucinations; no delusions; no shortness of breath; mood good; no anxiety; no crying spells; no panic; no isolation; sleeping well; appetite good; energy good; no apathy; maintaining functionality Not Available [place] [facility] 06/18/2022 17:46:52 01/06/2023 text/html Anxiety/Depressi onR eported bypatient.Severity: denies suicidal ideations; able to maintain relationships; does not interfere with activities of daily living Context:no major life stressors Associated Symptoms:denies homicidal ideations; no significant weight gain; no significant weight loss; no visual/auditory hallucinations; no delusions; no shortness of breath 6 mo f/u PALOMA Guillaume [address] [place] [address], [address], [facility] [employer] [facility] 01/16/2023 16:22:44 07/12/2024 text/html This patient has a past medical history significant for vitamin-D deficiency, anxiety, and depression. She presents to the office with a complaint of nasal congestion, inability to breathe through her nose, and a possible nasal polyp. She notes that she has difficulty breathing through her nose since she was approximately 9 years old. She notes a history with sinus infections annually with several rounds of antibiotics and steroid use. Her most recent 1 was on 05/13/2024 in which she was prescribed amoxicillin. She does report use of saline nasal spray and antihistamine with little symptom relief. She does report use of Flonase but admits that she only uses the Flonase when she is acutely ill and not on a regular basis. ISIDRA Navarro [address] [facility], [facility] [address], [place], [address], [employer] 07/12/2024 17:02:20 09/02/2024 text/html This patient had a sinus CT which reveals left frontal and bilateral maxillary sinusitis. She has had numerous courses of antibiotics this has been going on for years. Khadar Salazar MD [address] [facility], [facility] [address], [place], [address], [employer] 09/02/2024 14:40:58 OBGyn Episode No OBEpisode recorded.
--- OUTSIDE RECORDS SUMMARY | 2024-10-15 11:34 | XMS_ITS | Clinical Summary ---
Author Organization [employer] [facility] Address [address] [place] [address] Care Team Providers Care Sports Commentator Name Role Phone Unavailable Primary Care Provider Unavailabl e Medications semaglutide, weight loss, (Wegovy) 0.5 mg/0.5 mL Pen Injector Inject 0.5 mL (0.5 mg) by subcutaneous injection every 7 days. 2 mL 2 08/15/2023 3:47 PM CDT 4 Active semaglutide, weight loss, (Wegovy) 0.5 mg/0.5 mL Pen Injector Inject 0.5 mL (0.5 mg) by subcutaneous injection every 7 days. 2 mL 2 10/14/2023 7:00 PM CDT 4 Active semaglutide, weight loss, (Wegovy) 1 mg/0.5 mL Pen Injector Inject 1 mg (0.5 mL) subcutaneously once a week 2 mL 12/09/2023 5:18 PM CDT 4 Active semaglutide, weight loss, (Wegovy) 1.7 mg/0.75 mL Pen Injector Inject 0.75 mL (1.7 mg) by subcutaneous injection every 7 days. 3 mL 01/23/2024 5:52 PM CDT 4 Active tirzepatide, weight loss, (Zepbound) 2.5 mg/0.5 mL Pen Injector Inject 2.5 mg by subcutaneous injection every 7 days. 2 mL 04/20/2024 5:43 PM FARM MANAGEMENT ADVISER 4 Active tirzepatide, weight loss, (Zepbound) 5 mg/0.5 mL Pen Injector Inject 5 mg under the skin every 7 days. 2 mL 04/21/2024 6:26 PM FARM MANAGEMENT ADVISER 4 Active tirzepatide, weight loss, (Zepbound) 7.5 mg/0.5 mL Pen Injector Inject 7.5 mg by subcutaneous injection every 7 days. 2 mL Active Encounters Date Type Department Care Team Description 10/12/2024 External Device Data [facility] ABSTRACTION Provider, Abstract 10/08/2024 External Device Data [facility] ABSTRACTION Provider, Abstract 10/07/2024 External Device Data [facility] ABSTRACTION Provider, Abstract 10/06/2024 External Device Data [facility] ABSTRACTION Provider, Abstract 08/31/2024 External Device Data [facility] ABSTRACTION Provider, Abstract 08/04/2024 External Device Data [facility] ABSTRACTION Provider, Abstract 08/04/2024 External Device Data [facility] ABSTRACTION Provider, Abstract 07/24/2024 External Device Data [facility] ABSTRACTION Provider, Abstract 07/21/2024 External Device Data [facility] ABSTRACTION Provider, Abstract from Last 3 Months Social History Tobacco Use Types Packs/Day Years Used Date Smoking Tobacco: Never Assessed Comments Unknown Sex and Gender Information Value Date Recorded Sex Assigned at Not on file Legal Sex Female 2:09 PM CDT Gender Identity Not on file Sexual Orientation Not on file Plan of Treatment Health Maintenance Due Date Last Done Comments CHLAMYDIA SCREENING (ANNUAL) 11-24 YEARS 2012 HPV VACCINES (1 - 3-dose series) 2016 DTAP/TDAP/TD VACCINES (1 - Tdap) 2020 HEPATITIS B VACCINES (1 of 3 - 19+ 3-dose series) 09/17 CERVICAL CANCER SCREENING 2022 HPV/Cotest (21-29) 2022 PAP SMEAR 2022 INFLUENZA VACCINE (#1) 2023 Insurance Medicare Part B RX [employer] Commercial
[2024-10-15 11:38] VITALS: BP 117/58; PULSE 73; RESP 18; TEMP 36.4; O2SAT 100
[2024-10-15 12:00] LABS: EDSTREPNEGPOS1 Negative (Negative)
== END 2024-10-15 12:08 | disposition home or self-care (01) ==
PROVIDERS: Emergency Provider Nurse Practitioner; PCP Physician Assistant
DX: J04.0 Acute laryngitis (principal); J02.9 Acute pharyngitis, unspecified; I10 Essential (primary) hypertension
CPT/HCPCS: 87081; 87880; 99213; G0463